=== PATIENT | male | born 1955 | race Caucasian/White ===

== ENCOUNTER 2018-07-06 16:15 | Emergency (ER) | payer BC, SELFPAY ==
[2018-07-06 16:23] VITALS: BP 134/92; PULSE 76; RESP 14; TEMP 36.8; O2SAT 97
[2018-07-06 19:00] VITALS: BP 140/91; PULSE 63; RESP 14; TEMP 36.6; O2SAT 97
--- NOTE | 2018-07-06 20:08 | ED.GENADUL_ITS ---
Discharge Plan Disposition Patient Disposition: HOME Condition: Stable Discharge Details Chief Complaint: RashLesion Clinical Impression: Tick bite of groin Primary Care Provider: Lee Ocasio ED Provider: Talha Lynn Home Meds and New Rx's Prescriptions: Continue tadalafil [Cialis] 20 MG tablet 20 mg PO DIRECTED Qty: 10 RF: 3 losartan 50 MG tablet 50 mg PO DAILY 90 Days Qty: 90 RF: 3 pentoxifylline 400 MG tablet extended release 400 mg PO TID 90 Days Qty: 270 RF: 1 Discharge Instructions Instructions: Tick Bite (ED) Additional Instructions: Return to the ED for reasessment for any new or worsening symptoms. otherwise follow up with your PCP for recheck as needed Referrals: Lee Ocasio [Primary Care Provider] - (as needed) Discharge Data Discharge Date/Time-TO BE ENTERED AT DEPARTURE: 07/06/18 20:35 Medical Decision Making Tick bite upper right thigh. Attempted to remove any remaining parts with splint tweezers and minimal amount of embedded insect parts were able to be removed. Patient presented with deer tick in jar and reddness around the area with unknown attachment time 1 dose of doxy 200mg and dc home with return precautions. Patient is otherwise asymptomatic. After discussion of diagnosis and plan of care patient is no further needs, questions, or concerns and states clear understanding to return to the emergency department for any worsening symptoms. HPI General Mode of arrival: ambulatory . Date/Time Provider Initiated Documentation: 07/06/18 19:13 . Limitations to Documentation: no limitations . Information obtained by: patient and RN notes reviewed . History of Present Illness 62 year old M presents to the emergency department with the chief complaint of Tick bite, described as mild, with intensity rated at 1. Quality is described as aching, and is localized to the right and lower extremity. Patient started experiencing this minute(s) (30) and it has been constant. No relieving factors improve symptom(s), No exacerbating factors reported . Patient notes no other symptoms.. Patient did receive the following treatments prior to arrival, none Related Data Home Medications Medication Instructions Recorded Confirmed tadalafil [Cialis] 20 mg PO DIRECTED #10 tab-cap 08/07/17 07/06/18 losartan 50 mg PO DAILY 90 Days #90 tab-cap 12/04/17 07/06/18 pentoxifylline 400 mg PO TID 90 Days #270 tab-cap 04/02/18 07/06/18 Previous Rx's Medication Instructions Recorded tadalafil [Cialis] 20 mg PO DIRECTED #10 tab-cap 08/07/17 losartan 50 mg PO DAILY 90 Days #90 tab-cap 12/04/17 pentoxifylline 400 mg PO TID 90 Days #270 tab-cap 04/02/18 Allergies Allergy/AdvReac Type Severity Reaction Status Date / Time lisinopril AdvReac Mild cough Unverified 07/06/18 16:27 General Stated Complaint: RashLesion ONI: 4 Review of Systems Constitutional Denies body ache(s), Denies chills, Denies fatigue, Denies fever(s) and Denies headache(s) ENT Denies headache(s) Cardiovascular Denies chest pain and Denies dyspnea Respiratory Denies dyspnea Gastrointestinal Denies abdominal pain Integumentary/Breasts Reports as per HPI and Reports rash Neurologic Denies headache(s) Endocrine Denies fatigue PFSH Family History Mother Heart disease Hyperlipidemia Rheumatic fever Father Heart disease Neoplasm Cerebrovascular accident Sister Neoplasm Brother Diabetes Heart disease Brother Diabetes Grandfather Heart disease Myocardial infarction Grandfather No problems noted. Grandmother Diabetes Grandmother No problems noted. FAMILY HISTORY No problems noted. Daughter Arrhythmia Heart disease Daughter No problems noted. Social History Smoking/Tobacco Use Status: Never Surgical History Colonoscopy - IV Sedation (10/17/16) EAR POLYPS (~1969) MASTOIDECTOMY Tonsillectomy and adenoidectomy Tooth extraction Exam Const General: cooperative, no acute distress and not ill appearing Orientation: alert, awake and oriented x3 HENMT Mouth: moist mucous membranes Resp Effort & Inspection: normal respiratory effort, able to speak in complete sentences and no respiratory distress Cardio Rate: regular rate Rhythm: regular rhythm Skin General skin exam: erythema (Patient has small erythematous circular puncture with what appears to be embedded insect/tick parts measurement approximately 3 mm) Neuro General: alert, awake, oriented x3, moves all extremities and no focal motor deficits Sensory Exam: no sensory deficits noted Course Vital Signs Temperature 36.8 C 07/06/18 16:23 Pulse 76 07/06/18 16:23 Respiratory Rate 14 07/06/18 16:23 Blood Pressure 134/92 H 07/06/18 16:23 Pulse Oximetry 97 07/06/18 16:23 Temperature 36.6 C 07/06/18 19:00 Temperature Source Skin 07/06/18 19:00 Pulse 63 07/06/18 19:00 Respiratory Rate 14 07/06/18 19:00 Respiratory Effort 07/06/18 16:28 Blood Pressure 140/91 H 07/06/18 19:00 Blood Pressure Position Sitting 07/06/18 16:23 Pulse Oximetry 97 07/06/18 19:00 Oxygen Delivery Method Room Air 07/06/18 19:00 Oxygen Flow Rate 0 07/06/18 19:00 Pain Level 1 07/06/18 19:00
[2018-07-06 20:30] VITALS: BP 140/91; PULSE 63; RESP 14; TEMP 36.6; O2SAT 97
[2018-07-06] MEDS: Doxycycline Hyclate 100 MG CAP 200 MG PO (20:30)
== END 2018-07-06 20:35 | disposition home or self-care (01) ==
PROVIDERS: Emergency Provider Nurse Practitioner Family; PCP Family Medicine
DX: S70.361A Insect bite (nonvenomous), right thigh, initial encounter (principal); W57.XXXA Bitten or stung by nonvenomous insect and other nonvenomous arthropods, initial encounter
CPT/HCPCS: 99283